=== PATIENT | female | born 2000 | race Asian ===

== ENCOUNTER 2023-07-07 15:45 | Emergency (ER) | payer OTHER ==
[2023-07-07] MEDS ORDERED: Ketorolac Tromethamine 30 MG/ML VIAL ONE (17:14)
== END 2023-07-07 18:15 | disposition home or self-care (01) ==
LOC: ERS 15:45
DX: S20.212A Contusion of left front wall of thorax, initial encounter (principal); V49.9XXA Car occupant (driver) (passenger) injured in unspecified traffic accident, initial encounter; W22.12XA Striking against or struck by front passenger side automobile airbag, initial encounter; Z79.899 Other long term (current) drug therapy
CPT/HCPCS: 71045; 93005; 96372; J1885